=== PATIENT | female | born 1975 | race Caucasian/White ===

== ENCOUNTER 2020-09-13 14:33 | Emergency (ER) | payer OTHER ==
[~2020-09-13] VITALS: Ht 167.6 cm; Wt 108.7 kg
[2020-09-13] MEDS ORDERED: NITROGLYCERIN 0.4 MG SUBL TABLET SL PRN (15:00)
[2020-09-13] MEDS ORDERED: ASPIRIN 81 MG CHEW TABLET PO ONE (15:00)
[2020-09-13 15:10] VITALS: BP 152/77
[2020-09-13 15:10] LABS: BASO # 0.1 10^3/uL (0.0-0.2); BASO % 0.8 % (0.0-1.0); EOS # 0.5 10^3/uL (0.0-0.5); EOS % 5.1 % (0.0-3.0); HEMATOCRIT 38.7 % (36.0-47.0); LYMPH # 2.6 10^3/uL (1.5-5.0); LYMPH % 27.9 % (24.0-44.0); MEAN CORPUSCULAR HEMOGLOBIN 26.1 pg (27.0-33.0); MEAN CORPUSCULAR VOLUME 84.3 fl (80.0-96.0); MONO # 0.7 10^3/uL (0.0-0.8); MONO % 7.3 % (0.0-5.0); NEUTROPHILS # 5.4 10^3/uL (1.5-8.5); NEUTROPHILS % 58.6 % (36.0-66.0); PLATELET COUNT, AUTOMATED 363 10^3/uL (150-450); RED BLOOD COUNT 4.59 10^6/uL (4.00-5.40); WHITE BLOOD COUNT 9.2 10^3/uL (4.0-10.0)
[2020-09-13 15:19] LABS: INR 0.94; PROTHROMBIN TIME 12.8 SECONDS (12.5-14.3)
[2020-09-13 15:20] LABS: PARTIAL THROMBOPLASTIN TIME 23.6 SECONDS (24.2-38.5)
[2020-09-13 15:35] LABS: ALBUMIN 3.6 GM/DL (3.2-5.2); ALT/SGPT 16 U/L (12-78); BILIRUBIN,DIRECT < 0.1 MG/DL (0.0-0.2); BILIRUBIN,TOTAL 0.2 MG/DL (0.2-1.0); BLOOD UREA NITROGEN 9 MG/DL (7-18); CALCIUM LEVEL 9.4 MG/DL (8.5-10.1); CARBON DIOXIDE LEVEL 25 MEQ/L (21-32); CHLORIDE LEVEL 104 MEQ/L (98-107); CK-MB VALUE MASS < 1.0 NG/ML (<3.6); CPK CREATINE PHOSPHOKINASE 84 U/L (26-192); CREATININE FOR GFR 0.75 MG/DL (0.55-1.30); GLOMERULAR FILTRATION RATE > 60.0 (>58); GLUCOSE, FASTING 127 MG/DL (70-100); LIPASE 118 U/L (73-393); MB/CK RELATIVE INDEX 1.19 (< OR =4); POTASSIUM SERUM 3.4 MEQ/L (3.5-5.1); SODIUM LEVEL 138 MEQ/L (136-145); TOTAL PROTEIN 7.8 GM/DL (6.4-8.2); TROPONIN I < 0.02 NG/ML (< 0.10)
--- NOTE | 2020-09-13 15:37 | REP ---
INDICATION: CHEST PAIN. COMPARISON: None. TECHNIQUE: Two views FINDINGS: The lung gar are well inflated and without pleural effusion, lateral pleural thickening, apical scarring or pneumothorax. There is no infiltrate, mass or pulmonary nodule. Left hilum shows some fullness inferiorly. I cannot confirm this on the lateral view but an hilar lesion or lung lesion is not excluded. The aorta is normal and the airway intact. No abnormal widening of the mediastinum. Bony thorax unremarkable. No free air. IMPRESSION: 1. No acute infiltrate or effusion. The heart, airway and aorta unremarkable. Bones intact. 2. Fullness inferior aspect of the right hilum. This could be superimposed vessels but I could not exclude hilar lesion or adjacent superimposed parenchymal lung lesion. CT recommended in this patient with chest pain. <Electronically signed by Jose Eduardo Mcnamara > 09/13/20 1721
[2020-09-13] MEDS ORDERED: ISOVUE-370 76% 100ML VIAL As Ordered ONE (15:41)
[2020-09-13] MEDS ORDERED: POTASSIUM CHLORIDE 10 MEQ SR TABLET PO ONE (15:45)
[2020-09-13] MEDS ORDERED: ASPI81CH33 PO (16:13)
[2020-09-13] MEDS ORDERED: OMEP40CA97 PO (16:13)
[2020-09-13] MEDS ORDERED: METF-839 PO (16:13)
--- NOTE | 2020-09-13 16:35 | REP ---
INDICATION: chest pain, sob. COMPARISON: None. TECHNIQUE: Contrast dose: 75 ML of Isovue [address] technique: Helical scanning is acquired and overlapping 1.5 mm and contiguous 3 mm axial images are reformatted. In addition, maximum intensity projection and multiplanar re-formation images are generated in sagittal and coronal imaging projections. FINDINGS: There is good opacification in the pulmonary arterial tree. There is no evidence of vessel cut off or filling defect to suggest pulmonary embolus. Homogeneous opacity is seen in the thoracic aorta. There is no evidence of aneurysm or dissection. Lung window settings demonstrate a 4 mm noncalcified pulmonary nodule in the left lower lobe displayed on image 47 of 89 and series 402 of today's study. No other pulmonary nodule is seen. No mass or infiltrate is seen. No pleural or pericardial effusion is seen. No hilar or mediastinal mass or adenopathy is observed. No extra thoracic mass or adenopathy is seen. Normal sized axillary lymph nodes are noted bilaterally. In the upper abdomen, normal adrenal glands are observed. The visualized upper abdominal structures are otherwise unremarkable. No bony destructive lesion is seen. IMPRESSION: No CT evidence of pulmonary embolus. There is a 4 mm noncalcified pulmonary nodule in the left lower lobe. If this patient is considered at risk for pulmonary malignancy, a follow-up chest CT study would be indicated in 1 year. Otherwise no acute disease. <Electronically signed by Esteban Shane > 09/13/20 [id number]
[2020-09-13 21:08] LABS: CK-MB VALUE MASS < 1.0 NG/ML (<3.6); CPK CREATINE PHOSPHOKINASE 75 U/L (26-192); MB/CK RELATIVE INDEX 1.33 (< OR =4); TROPONIN I < 0.02 NG/ML (< 0.10)
[2020-09-13 22:20] VITALS: BP 139/76
--- NOTE | 2020-09-14 09:20 | ECGEPIP ---
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
--- NOTE | 2020-09-14 13:37 | ECGEPIP ---
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
== END 2020-09-13 22:36 | disposition home or self-care (01) ==
LOC: M ED 14:33
DX: R07.9 Chest pain, unspecified (principal); R91.1 Solitary pulmonary nodule; I10 Essential (primary) hypertension; E11.9 Type 2 diabetes mellitus without complications; K21.9 Gastro-esophageal reflux disease without esophagitis; D50.9 Iron deficiency anemia, unspecified; Z91.048 Other nonmedicinal substance allergy status; Z91.018 Allergy to other foods; Z79.899 Other long term (current) drug therapy; Z79.84 Long term (current) use of oral hypoglycemic drugs; Z79.82 Long term (current) use of aspirin
CPT/HCPCS: 71046; 71275; 80048; 80076; 82550; 82553; 83690; 84484; 84702; 85025; 85610; 85730; 93005; 93041; 94760; 99285; Q9967

== ENCOUNTER → 2021-02-01 | Outpatient (CLI) | payer OTHER ==
[~2021-02-01] MED LIST: ASPI81CH33 PO; METF-839 PO; OMEP40CA97 PO
--- NOTE | 2021-02-04 11:23 | SLEEPHOME ---
DATE: 02/01/2021 ORDERED BY: GODWIN [place] Diagnostic home sleep testing was performed due to concern for the obstructive sleep apnea syndrome in this patient with a history of morning headaches and nonrestorative sleep. For testing, a nocturnal T3 respiratory monitoring device was used. Continuous record was made of pulse, oxygen saturation, air flow, chest and abdominal strain, and body position. Nine hours and 59 minutes of data were reviewed. There were 7 hours and 42 minutes marked as time in bed. During the interval marked time in bed, there were 43 respiratory events identified of 10 seconds in duration or greater for a respiratory event index of 5.6. The events were primarily obstructive. Baseline pulse rate 71. Pulse rate ranged 59 to 99. Baseline saturation was 93%. Saturations fell to 83%. The pulse oximetry probe was displaced after 3:00 a.m. Testing was performed in both the supine and nonsupine positions. IMPRESSION: Abnormal home sleep testing with repetitive respiratory events and oxygen desaturations to 83% with a respiratory event index of 5.6 is consistent with the obstructive sleep apnea syndrome. RECOMMENDATION: Sleep position retraining for avoidance of the supine posture may be helpful. However, given the limited data recovered as noted above, close clinical followup is recommended and the patient may require more formal sleep evaluationJuan Adkins
== END ==
LOC: M SLEEP HO 13:33
PROVIDERS: ATTEND Physician Assistant
DX: R06.83 Snoring (principal)

== ENCOUNTER → 2021-02-26 | Outpatient (CLI) | payer OTHER | LOC: M SLEEP 20:00 | PROVIDERS: ATTEND Physician Assistant | DX: G47.33 Obstructive sleep apnea (adult) (pediatric) (principal) ==

== ENCOUNTER → 2022-03-26 | Outpatient (CLI) | payer OTHER ==
[~2022-03-26] MED LIST changes: +OMEP40CA4 PO; -OMEP40CA97 PO
== END ==
LOC: M WHC 13:10
PROVIDERS: ATTEND Nurse Practitioner Primary Care
DX: Z12.31 Encounter for screening mammogram for malignant neoplasm of breast (principal)

== ENCOUNTER → 2022-05-16 | Outpatient (CLI) | payer OTHER ==
[~2022-05-16] MED LIST changes: +BIOT10009 PO; +ESOM20CA25; +FERR325T3 PO; +VITMTA PO
[2022-05-16 14:58] LABS: HEMOGLOBIN 9.9 g/dl (12.0-15.5); MEAN CORPUSCULAR HEMOGLOBIN 26.8 pg (27.0-33.0); MEAN CORPUSCULAR HGB CONC 30.9 g/dl (32.0-36.5); MEAN CORPUSCULAR VOLUME 86.5 fl (80.0-96.0); PLATELET COUNT, AUTOMATED 319 10^3/uL (150-450); WHITE BLOOD COUNT 9.9 10^3/uL (4.0-10.0)
== END ==
LOC: M EKG 14:03
PROVIDERS: ATTEND Anesthesiology
DX: Z01.818 Encounter for other preprocedural examination (principal)

== ENCOUNTER 2022-05-21 06:12 | Observation (INO) | payer OTHER ==
[~2022-05-21] VITALS: Ht 172.7 cm; Wt 115.2 kg
[~2022-05-21 06:12] MED LIST changes: +ACETAMINOPHEN 650 MG SUPP PR ONE
[2022-05-21] MEDS ORDERED: LR 1,000 ML IV SCH (06:35)
[2022-05-21] MEDS ORDERED: ONDANSETRON 4MG 2ML VIAL As Ordered ONE (07:07)
[2022-05-21] MEDS ORDERED: LIDOCAINE 2% INJ 100 MG/5 ML SYRINGE As Ordered ONE (07:07)
[2022-05-21] MEDS ORDERED: SUGAMMADEX SODIUM 500 MG/5 ML VIAL (BRIDION) As Ordered ONE (07:07)
[2022-05-21] MEDS ORDERED: ACETAMINOPHEN 1000MG 100ML IV BTL (OFIRMEV) (J0131 PER 10MG) As Ordered ONE (07:07)
[2022-05-21] MEDS ORDERED: propofoL 200 MG/20 ML VIAL As Ordered ONE (07:07)
[2022-05-21] MEDS ORDERED: ROCURONIUM BROMIDE 50 MG/5 ML VIAL As Ordered ONE (07:07)
[2022-05-21] MEDS ORDERED: dexameTHASONE 4 MG/ML 1ML VIAL (J1100 PER 1MG) As Ordered ONE (07:07)
[2022-05-21] MEDS ORDERED: fentaNYL 100 MCG/2 ML INJECTION As Ordered ONE ×2 (07:08→08:41)
[2022-05-21] MEDS ORDERED: MIDAZOLAM INJ 2MG/2ML VIAL (J2250 PER 1MG) As Ordered ONE (07:08)
[2022-05-21] MEDS ORDERED: BUPIVACAINE HCL 0.5% 30ML VIAL As Ordered ONE (07:17)
[2022-05-21] MEDS ORDERED: ACETAMINOPHEN 650 MG SUPP As Ordered ONE (07:17)
[2022-05-21 07:18] LABS: BLOOD UREA NITROGEN 13 MG/DL (7-18); CALCIUM LEVEL 8.7 MG/DL (8.5-10.1); CARBON DIOXIDE LEVEL 29 MEQ/L (21-32); CHLORIDE LEVEL 105 MEQ/L (98-107); CREATININE FOR GFR 0.63 MG/DL (0.55-1.30); GLOMERULAR FILTRATION RATE > 60.0 (>58); GLUCOSE, FASTING 133 MG/DL (70-100); GLUCOSE,RANDOM 133 MG/DL (LESS THAN 200); HCG, SERUM QUANTITATIVE < 1.0 MIU/ML; SODIUM LEVEL 137 MEQ/L (136-145)
[2022-05-21] MEDS ORDERED: ceFAZolin 2 GM/D5W 50 ML IV BAG (J0690 PER 500MG) As Ordered ONE (07:45)
[2022-05-21] MEDS ORDERED: metroNIDAZOLE/NACL 500MG(5MG/ML) 100ML BAG As Ordered ONE (07:46)
[2022-05-21] MEDS ORDERED: KETOROLAC 60MG 2ML VIAL As Ordered ONE (08:57)
[2022-05-21] MEDS ORDERED: NS 1,000 ML IV SCH (09:50)
[2022-05-21] MEDS ORDERED: ONDANSETRON 4MG 2ML VIAL IV PRN (09:50)
[2022-05-21] MEDS ORDERED: fentaNYL 100 MCG/2 ML INJECTION IV PRN (09:50)
[2022-05-21] MEDS: oxyCODONE 5MG TAB PO PRN ×2 (10:19→11:03)
[2022-05-21] MEDS: MEPERIDINE INJ 25 MG/ML VIAL (J2175) IV PRN ×2 (10:20→10:26)
[2022-05-21] MEDS ORDERED: ALBUTEROL SULFATE 2.5 MG/0.5 ML INH NEB SOLN INH ONE (10:55)
[2022-05-21] MEDS ORDERED: GLUCOSE 4GM CHEW TABLET PO PRN (14:40)
[2022-05-21] MEDS ORDERED: ACETAMINOPHEN TAB 650MG DOSE (2X325MG) PO PRN (14:40)
[2022-05-21] MEDS ORDERED: GLUCAGON INJ 1MG VIAL SC PRN (14:40)
[2022-05-21] MEDS ORDERED: DEXTROSE 50% 50 ML SYRINGE IV PRN (14:40)
[2022-05-21] MEDS ORDERED: PERCOCET 5MG/325MG TAB PO PRN ×2 (14:40)
[2022-05-21 15:14] LABS: HEMOGLOBIN 10.4 g/dl (12.0-15.5); MEAN CORPUSCULAR HEMOGLOBIN 26.1 pg (27.0-33.0); MEAN CORPUSCULAR HGB CONC 30.6 g/dl (32.0-36.5); MEAN CORPUSCULAR VOLUME 85.4 fl (80.0-96.0); PLATELET COUNT, AUTOMATED 317 10^3/uL (150-450); RED BLOOD COUNT 3.98 10^6/uL (4.00-5.40); WHITE BLOOD COUNT 14.6 10^3/uL (4.0-10.0)
[2022-05-21] MEDS: INSULIN LISPRO (NovoLOG) PER UNIT SC SCH ×2 (15:15→17:56)
[2022-05-21 15:35] VITALS: BP 134/77
[2022-05-21] MEDS: KETOROLAC 30 MG/ML 1ML VIAL IV SCH ×3 (16:12→21:00)
[2022-05-21 17:38] LABS: PERCENT SATURATION 6.8 % (13.2-45.0)
[2022-05-21] MEDS: DOCUSATE SODIUM 100MG CAPSULE PO SCH (20:15)
[2022-05-21] MEDS ORDERED: INSULIN LISPRO (NovoLOG) PER UNIT SC SCH (21:00)
[2022-05-21 21:06] VITALS: BP 133/77
[2022-05-22] VITALS: BP 117/68
[2022-05-22 01:00] VITALS: BP 135/82
[2022-05-22] MEDS: KETOROLAC 30 MG/ML 1ML VIAL IV SCH ×2 (03:00→08:30)
[2022-05-22 06:00] VITALS: BP 145/83
[2022-05-22 06:22] LABS: HEMATOCRIT 30.7 % (36.0-47.0); HEMOGLOBIN 9.2 g/dl (12.0-15.5); MEAN CORPUSCULAR HEMOGLOBIN 25.7 pg (27.0-33.0); MEAN CORPUSCULAR VOLUME 85.8 fl (80.0-96.0); PLATELET COUNT, AUTOMATED 330 10^3/uL (150-450); RED BLOOD COUNT 3.58 10^6/uL (4.00-5.40)
[2022-05-22 06:33] VITALS: O2SAT 92
[2022-05-22 07:09] LABS: BLOOD UREA NITROGEN 11 MG/DL (7-18); CALCIUM LEVEL 8.8 MG/DL (8.5-10.1); CARBON DIOXIDE LEVEL 25 MEQ/L (21-32); CHLORIDE LEVEL 106 MEQ/L (98-107); CREATININE FOR GFR 0.61 MG/DL (0.55-1.30); GLOMERULAR FILTRATION RATE > 60.0 (>58); GLUCOSE, FASTING 115 MG/DL (70-100); POTASSIUM SERUM 4.2 MEQ/L (3.5-5.1); SODIUM LEVEL 140 MEQ/L (136-145)
[2022-05-22] MEDS ORDERED: FERR325T3 PO (08:12)
[2022-05-22] MEDS ORDERED: ACET1TAB55 PO (08:12)
[2022-05-22] MEDS ORDERED: COLA100C5 PO (08:12)
[2022-05-22] MEDS ORDERED: TRAM50TA2 PO (08:13)
[2022-05-22] MEDS: DOCUSATE SODIUM 100MG CAPSULE PO SCH (08:28)
[2022-05-22] MEDS: INSULIN LISPRO (NovoLOG) PER UNIT SC SCH ×2 (08:29→12:15)
[2022-05-22] MEDS ORDERED: OMEPRAZOLE 20MG CAP PO SCH (09:00)
[2022-05-22] MEDS ORDERED: FERROUS SULFATE 325MG TAB PO SCH (09:00)
[2022-05-22 10:00] VITALS: BP 127/71
[2022-05-22] MEDS ORDERED: KETOROLAC 30 MG/ML 1ML VIAL IV ONE (10:45)
[2022-05-22] MEDS ORDERED: IBUPROFEN 800 MG TAB PO ONE ×2 (10:45→11:45)
== END 2022-05-22 13:37 | disposition home or self-care (01) ==
LOC: M SDC 06:12 → M MSPAV 06:13
PROVIDERS: ADMIT Internal Medicine; ATTEND Internal Medicine
DX: N93.9 Abnormal uterine and vaginal bleeding, unspecified (principal); Z30.2 Encounter for sterilization; B96.89 Other specified bacterial agents as the cause of diseases classified elsewhere; N85.4 Malposition of uterus; K66.0 Peritoneal adhesions (postprocedural) (postinfection); I10 Essential (primary) hypertension; E11.9 Type 2 diabetes mellitus without complications; E66.9 Obesity, unspecified; Z68.41 Body mass index [BMI] 40.0-44.9, adult; G47.33 Obstructive sleep apnea (adult) (pediatric); K21.9 Gastro-esophageal reflux disease without esophagitis; F41.9 Anxiety disorder, unspecified; D64.9 Anemia, unspecified; G47.34 Idiopathic sleep related nonobstructive alveolar hypoventilation; Z79.899 Other long term (current) drug therapy; Z79.82 Long term (current) use of aspirin; Z79.84 Long term (current) use of oral hypoglycemic drugs; Z91.018 Allergy to other foods; Z91.048 Other nonmedicinal substance allergy status
CPT/HCPCS: 36415; 58563; 58661; 71045; 80048; 82728; 82947; 83036; 83550; 83880; 84702; 85027; 87070; 87075; 87077; 87205; 88302; 88305; 93005; 96374; 96376; J0131; J0690; J1100; J1815; J1885; J2175; J2250; J2405; J3010

== ENCOUNTER → 2022-10-17 | Outpatient (CLI) | payer OTHER ==
[~2022-10-17] MED LIST changes: +ACET1TAB55 PO; -ACETAMINOPHEN 650 MG SUPP PR ONE; +COLA100C5 PO; +TRAM50TA2 PO
== END ==
LOC: M WUC 15:13
PROVIDERS: ATTEND Family Medicine Adult Medicine
DX: Z11.1 Encounter for screening for respiratory tuberculosis (principal); M47.9 Spondylosis, unspecified

== ENCOUNTER 2022-11-10 13:06 | Emergency (ER) | payer OTHER, SELFPAY ==
[~2022-11-10] VITALS: Ht 172.7 cm; Wt 113.0 kg
[2022-11-10 14:10] LABS: BASO # 0.1 10^3/uL (0.0-0.2); BASO % 0.9 % (0.0-1.0); EOS # 0.4 10^3/uL (0.0-0.5); EOS % 4.8 % (0.0-3.0); HEMATOCRIT 34.7 % (36.0-47.0); HEMOGLOBIN 10.9 g/dl (12.0-15.5); LYMPH # 2.6 10^3/uL (1.5-5.0); LYMPH % 28.1 % (24.0-44.0); MEAN CORPUSCULAR HEMOGLOBIN 27.6 pg (27.0-33.0); MEAN CORPUSCULAR HGB CONC 31.4 g/dl (32.0-36.5); MEAN CORPUSCULAR VOLUME 87.8 fl (80.0-96.0); MONO # 0.6 10^3/uL (0.0-0.8); MONO % 6.7 % (2.0-8.0); NEUTROPHILS # 5.5 10^3/uL (1.5-8.5); NEUTROPHILS % 59.2 % (36.0-66.0); PLATELET COUNT, AUTOMATED 364 10^3/uL (150-450); RED BLOOD COUNT 3.95 10^6/uL (4.00-5.40); WHITE BLOOD COUNT 9.2 10^3/uL (4.0-10.0)
[2022-11-10 14:33] LABS: BLOOD UREA NITROGEN 12 MG/DL (9-23); CALCIUM LEVEL 9.2 MG/DL (8.5-10.1); CARBON DIOXIDE LEVEL 26 MMOL/L (20-31); CHLORIDE LEVEL 102 MMOL/L (98-107); CREATININE FOR GFR 0.57 MG/DL (0.55-1.30); GLOMERULAR FILTRATION RATE > 60.0 (>58); GLUCOSE, FASTING 132 MG/DL (60-100); POTASSIUM SERUM 3.9 MMOL/L (3.5-5.1); SODIUM LEVEL 138 MMOL/L (136-145)
[2022-11-10 14:41] LABS: RSV AMPLIFICATION NEGATIVE (NEGATIVE)
[2022-11-10 15:27] VITALS: BP 153/87
[2022-11-10] MEDS ORDERED: TRANEXAMIC ACID IV ONE (15:45)
[2022-11-10] MEDS ORDERED: TRAN650T PO ×2 (18:49→18:51)
== END 2022-11-10 19:05 | disposition home or self-care (01) ==
LOC: M ED 13:06
DX: N93.9 Abnormal uterine and vaginal bleeding, unspecified (principal); E11.9 Type 2 diabetes mellitus without complications; I10 Essential (primary) hypertension; G47.33 Obstructive sleep apnea (adult) (pediatric); K21.9 Gastro-esophageal reflux disease without esophagitis; Z79.82 Long term (current) use of aspirin; Z79.84 Long term (current) use of oral hypoglycemic drugs; Z79.899 Other long term (current) drug therapy

== ENCOUNTER 2023-06-23 17:16 | Emergency (ER) | payer OTHER ==
[~2023-06-23] VITALS: Ht 195.6 cm; Wt 109.8 kg
[~2023-06-23 17:16] MED LIST changes: +TRAN650T PO
[2023-06-23 18:22] LABS: HEMATOCRIT 26.6 % (36.0-47.0); HEMOGLOBIN 7.3 g/dl (12.0-15.5); MEAN CORPUSCULAR HEMOGLOBIN 18.3 pg (27.0-33.0); MEAN CORPUSCULAR HGB CONC 27.4 g/dl (32.0-36.5); MEAN CORPUSCULAR VOLUME 66.7 fl (80.0-96.0); PLATELET COUNT, AUTOMATED 411 10^3/uL (150-450); RED BLOOD COUNT 3.99 10^6/uL (4.00-5.40); WHITE BLOOD COUNT 13.1 10^3/uL (4.0-10.0)
[2023-06-23 18:49] LABS: BLOOD UREA NITROGEN 8 MG/DL (9-23); CALCIUM LEVEL 9.1 MG/DL (8.5-10.1); CARBON DIOXIDE LEVEL 24 MMOL/L (20-31); CHLORIDE LEVEL 104 MMOL/L (98-107); CREATININE FOR GFR 0.63 MG/DL (0.55-1.30); GLOMERULAR FILTRATION RATE > 60.0 (>58); GLUCOSE, FASTING 159 MG/DL (60-100); POTASSIUM SERUM 3.9 MMOL/L (3.5-5.1); SODIUM LEVEL 139 MMOL/L (136-145)
[2023-06-23 19:08] LABS: RSV AMPLIFICATION NEGATIVE (NEGATIVE)
[2023-06-23 19:58] LABS: INR 1.13; PROTHROMBIN TIME 14.2 SECONDS (12.5-14.5)
[2023-06-23 19:59] LABS: PARTIAL THROMBOPLASTIN TIME 24.4 SECONDS (24.8-34.2)
[2023-06-23 21:35] VITALS: BP 134/86; TEMP 98.2; O2SAT 98
[2023-06-23 21:50] VITALS: BP 142/74; TEMP 98.6
[2023-06-23 22:45] VITALS: BP 128/70; TEMP 97.3
[2023-06-23 23:10] VITALS: BP 130/69; TEMP 97.7; O2SAT 100
[2023-06-24 00:21] VITALS: BP 130/71; TEMP 97.7; O2SAT 100
[2023-06-24 00:44] VITALS: BP 135/62; TEMP 98.2; O2SAT 100
[2023-06-24 01:50] VITALS: BP 138/62; TEMP 98.2; O2SAT 99
== END 2023-06-24 02:07 | disposition home or self-care (01) ==
LOC: M ED 17:16
DX: N93.8 Other specified abnormal uterine and vaginal bleeding (principal); E11.9 Type 2 diabetes mellitus without complications; K21.9 Gastro-esophageal reflux disease without esophagitis; G47.33 Obstructive sleep apnea (adult) (pediatric); Z79.82 Long term (current) use of aspirin; Z79.84 Long term (current) use of oral hypoglycemic drugs; Z79.899 Other long term (current) drug therapy; Z91.018 Allergy to other foods; Z91.89 Other specified personal risk factors, not elsewhere classified
CPT/HCPCS: 36430; 71045; 80048; 85027; 85610; 85730; 86850; 86900; 86901; 86920; 87631; 99285; P9016

== ENCOUNTER → 2024-05-18 | Outpatient (CLI) | payer OTHER | LOC: M WHC 11:04 | PROVIDERS: ATTEND Internal Medicine | DX: Z12.31 Encounter for screening mammogram for malignant neoplasm of breast (principal) ==

== ENCOUNTER → 2025-05-23 | Outpatient (CLI) | payer OTHER | LOC: M WHC 12:49 | PROVIDERS: ATTEND Internal Medicine | DX: Z12.31 Encounter for screening mammogram for malignant neoplasm of breast (principal) ==

== ENCOUNTER → 2025-10-06 | Outpatient (CLI) | payer OTHER | LOC: M CARPUL 08:23 | PROVIDERS: ATTEND Internal Medicine | DX: R01.1 Cardiac murmur, unspecified (principal) ==